=== PATIENT | male | born 1985 | race Caucasian/White ===

== ENCOUNTER → 2016-07-10 | Day surgery (SDC) | payer OTHER ==
[~2016-07-10] MED LIST: BUPIVACAINE/EPINEPHRINE 0.25% PF 10 ML VIAL ONE; KETOROLAC TROMETHAMINE 30 MG/ML (IVP) VIAL IV PUSH ONE; LACTATED RINGER'S 1000 ML INJ 1,000 ML ONE; MIDAZOLAM HCL 2 MG/2 ML VIAL ONE; MORPHINE SULFATE 4 MG/ML INJ ONE; ONDANSETRON HCL 4 MG/2 ML VIAL IV PUSH ONE; PROPOFOL 200 MG/20 ML AMP IV ONE; ceFAZolin 2 GM PREMIX 50 ML ONE
--- NOTE | 2016-07-10 15:08 | TN ---
cc: EFREN STRE[address] M.D. DATE OF SURGERY: 07/10/2016 PREOPERATIVE DIAGNOSIS 1. Chronic left groin and testicle pain status post da Ana robot laparoscopic left inguinal hernia in [place]. 2. Supraumbilical incisional hernia. POSTOPERATIVE DIAGNOSIS 1. Chronic left groin and testicle pain status post da Ana robot laparoscopic left inguinal hernia in [place]. 2. Supraumbilical incisional hernia. 3. No evidence of left inguinal hernia recurrence. 4. Descending colon adhesions left lower quadrant. 5. Small direct right inguinal hernia. PROCEDURE PERFORMED 1. Diagnostic laparoscopy. 2. Laparoscopic lysis of adhesions. 3. Supraumbilical incisional hernia repair (primary repair). SURGEON [address] FINE SANDER DAMARIS Huggins ANESTHESIA General LMA. COMPLICATIONS None. INDICATION FOR PROCEDURE Mr. Saba is a pleasant 30-year-old gentleman who has had about a 2-3 month history of chronic left groin and testicle pain as well as a supraumbilical bulge. His surgical history is significant for undergoing a da Ana robot laparoscopic left inguinal hernia repair with mesh. He states he initially did well after the surgery but subsequently developed chronic left groin and testicular pain. He was initially seen at [facility]. He was diagnosed with possible recurrent left inguinal hernia as well as a supraumbilical incisional hernia from his midline port site. The patient was scheduled for surgery with Dr. David but due to delay he had decided to get a second opinion. He came to see me last week. On physical exam he had an obvious supraumbilical incisional hernia from his port site. I could not detect a left inguinal hernia on exam. I recommended that we do a diagnostic laparoscopy to evaluate the left groin as well as the right groin and then repair his epigastric hernia. I advised him we could place the port in his epigastric hernia site. The patient was agreeable. DETAILS OF PROCEDURE The patient was identified, brought to the operating room and placed supine on the operating table. After adequate general anesthesia was achieved with an LMA the anterior abdomen and groin was prepped and draped in standard surgical fashion. The supraumbilical port site was anesthetized with 0.25% Marcaine. The previous incision was then opened. Dissection proceeded down into the subcutaneous tissue identifying a hernia sac. The hernia sac was opened and the peritoneal cavity was entered without difficulty. Blunt balloon trocar was inserted and the abdomen was insufflated to 15 mmHg using CO2 gas. Next, the patient was placed in steep Trendelenburg position. A 0 degree laparoscope was inserted and the pelvis was evaluated. On the left side the patient had no evidence of recurrent left inguinal hernia. His mesh was clearly visible and intact. There was no evidence of any cord compromise or any other abnormalities. The patient did have the descending colon adherent to the surgical site. I therefore placed a 5 mm port in the lower midline and used laparoscopic 5 mm scissors to take down the colon off of the previous site. Once we did this the area was clearly visualized and there was no evidence of a left inguinal hernia. This was carefully visualized and palpated and there was no evidence of hernia and the cord appeared intact with no kinking or compromise. Attention was now directed to the right side. On the right side the patient had a small direct laxity in the inguinal floor. There was no obvious hernia there that required repair. This overall was just a gentle laxity in the floor causing a slight protuberance. At this point the camera was withdrawn and the abdomen was desufflated. The abdominal wall fascia was cleaned off and then closed transversely using a 0 Prolene suture interrupted x3. With this the defect was completely closed. Tissue quality was excellent. Sutures were not under any significant tension. 0.25% Marcaine was injected around the operative site. The subcutaneous tissue was injected with additional local anesthetic and the skin was closed with 4-0 Vicryl. The 5 mm port site was also closed with 4-0 Vicryl. The patient tolerated the procedure well, was awakened and brought to Recovery in stable condition. Please note the [facility] assistant professor of theater was medically necessary due to her specialized surgical skills and knowledge of my surgical technique. She was present and scrubbed for the entire procedure. MD CHERYL Guerra/TERRA /2:48 PM /2:56 PM RUSS
== END | disposition home or self-care (01) ==
LOC: ESDC 12:15
PROVIDERS: ATTEND Surgery Trauma Surgery
DX: K66.0 Peritoneal adhesions (postprocedural) (postinfection) (principal); N50.812 Left testicular pain; K43.2 Incisional hernia without obstruction or gangrene; K40.90 Unilateral inguinal hernia, without obstruction or gangrene, not specified as recurrent
CPT/HCPCS: 00840; 44180; J0690; J1885; J2250; J2270; J2405; J3010; J7120